=== PATIENT | male | born 1945 | race Caucasian/White ===

== ENCOUNTER 2019-08-18 18:21 | Inpatient (IN) ==
[2019-08-18 18:56] LABS: BASO# 0.01 X1000 (0.0-0.2); BASO% 0.1 % (0.0-0.8); EOS# 0.05 X1000 (0.0-0.7); EOS% 0.5 % (0.0-10.0); HEMATOCRIT 40.9 % (42.0-52.0); HEMOGLOBIN 13.9 g/dL (14.0-18.0); IMM GRAN# 0.03 X1000 (0.0-0.04); IMM GRAN% 0.3 % (0.0-0.5); LYMPH# 0.87 X1000 (1.2-3.4); LYMPH% 8.9 % (20.5-51.1); MCH 30.1 PG (27-31); MCV 88.5 FL (81-99); MONO# 0.48 X1000 (0.11-0.59); MONO% 4.9 % (1.7-9.3); MPV 10.2 FL (7.4-10.4); NEUT# 8.32 X1000 (1.4-6.5); NEUT% 85.3 % (42.2-75.2); PLT 242 X1000 (130-400); RBC 4.62 XMIL (4.7-6.1); RDW 13.8 % (11.5-14.5); WBC 9.76 X1000 (4.8-10.8)
[2019-08-18 19:02] LABS: INR 1.04; PROTIME 13.7 Seconds (11.0-16.0)
[2019-08-18 19:03] LABS: PTT 25.2 Seconds (22.3-41.8)
[2019-08-18 19:15] LABS: AGAP 17; ALB/GLOB RATIO 2.1; ALBUMIN 4.6 g/dL (3.5-5.0); ALKALINE PHOSPHATASE 46 U/L (32-122); BUN 14 mg/dL (8-22); CHLORIDE 99 mmol/L (98-107); CK PROFILE 68 U/L (24-204); COSMO 274; CREATININE 1.1 mg/dL (0.7-1.2); ESTIMATED GFR > 60; GLUCOSE 133 mg/dL (70-104); GOT 20 U/L (10-34); GPT 17 U/L (10-44); POTASSIUM 4.4 mmol/L (3.5-5.1); SODIUM 136 mmol/L (136-145); TCO2 20 mmol/L (25-35); TOTAL BILIRUBIN 0.55 mg/dL (0.20-1.00); TOTAL PROTEIN 6.8 g/dL (6.3-8.3)
[2019-08-18] MEDS ORDERED: NS 1,000 ML IV ONE (19:31)
[2019-08-18] MEDS ORDERED: ZOFRAN IV ONE (19:31)
[2019-08-18 19:49] LABS: URINE SOURCE CLEAN CATCH
[2019-08-18 19:55] LABS: BILIRUBIN URINE NEGATIVE (NEGATIVE); BLOOD URINE NEGATIVE (NEGATIVE); COLOR YELLOW; GLUCOSE URINE NEGATIVE (NEGATIVE); KETONE URINE NEGATIVE (NEGATIVE); LEUKOCYTES URINE NEGATIVE (NEGATIVE); NITRITE URINE NEGATIVE (NEGATIVE); PROTEIN URINE NEGATIVE (NEGATIVE); SP GRAVITY URINE 1.021; TURBIDITY URINE CLEAR (CLEAR); UROBILINOGEN URINE NORMAL (NORMAL)
[2019-08-18 19:56] LABS: UR EPITHELIAL CELLS <10 /HPF (<10); URINE BACTERIA NEGATIVE /HPF; URINE RBC <10 /HPF (<10); URINE WBC <10 /HPF (<10)
--- NOTE | 2019-08-18 20:01 | EKG Report ---
Test Performed on : 08/18/2019 6:26:54 PM Test Reason : r/o sepsis Blood Pressure : / mmHG Vent. Rate : 121 BPM Atrial Rate : 121 BPM P-R Int : 162 ms QRS Dur : 086 ms QT Int : 304 ms P-R-T Axes : 031 065 039 degrees QTc Int : 431 ms Sinus tachycardia. with fusion complexes Inferior infarct , age undetermined Abnormal ECG When compared with ECG of 20-AUG-2010 02:09, fusion complexes are now present Vent. rate has increased BY 54 BPM Inferior infarct is now present Unconfirmed Result
--- NOTE | 2019-08-18 20:05 | Diag Imaging Result Doc PS360 ---
EXAM: CHEST-1 VIEW 08/18/2019 HISTORY: r/o sepsis TECHNIQUE: AP portable upright at 1915 COMMENT: The inspiration is suboptimal. There are no previous studies available for comparison. There is some platelike atelectasis in the lung bases. There are sternotomy wires. IMPRESSION: Atelectasis. Poor inspiration. Electronically signed by Wayne Abad 08/18/2019 8:02 PM
--- NOTE | 2019-08-18 21:40 | Diag Imaging Result Doc PS360 ---
EXAM: CT THORAX/ABD/PELVIS W/CON 08/18/2019 HISTORY: fever, unknown source TECHNIQUE: This exam was performed using automated exposure control, adjustment of mA or kV according to patient size, and/or use of iterative reconstruction technique. COMMENT: There is a 14 mm right paratracheal node. There are no previous thoracic studies available for comparison. There is pleural thickening posteriorly bilaterally and anteriorly on the right. Some of this was present on the previous abdominal study of 10/21/2016. There is also fibrosis in the posterior costophrenic sulcus of the left lower lobe. There is atelectasis or fibrosis anteriorly in the right middle lobe and lingula and both upper lobes. There are spondylotic changes in the thoracic spine. No evidence of acute bony abnormality is present. ABDOMEN: Both renal collecting systems are somewhat distended. There is a 2 mm sized stone on the right. The gallbladder is not distended and there are no apparent stones. The liver and spleen are unremarkable. The adrenal glands are stable in appearance. The pancreas is unremarkable. There is some fluid in the stomach without evidence of distention or mucosal thickening. There is some stool in the colon. There is diverticulosis generally. The appendix is not distended or inflamed in appearance. The small bowel is not distended. There is atherosclerotic calcification in the aorta which is slightly distended distally to 2.5 cm. At the time of the previous examination this measured 2.4 cm. Pelvis: There is stranding in the fat surrounding the distal descending colon. There is marked diverticulosis in the sigmoid colon. No evidence of abscess is present. There are degenerative changes in both hips. There is apparent synovial cyst formation in the right psoas. This was not apparent at the time the previous study. The cyst measures 2.9 cm in diameter. There are severe degenerative disc and facet changes at L5-S1 and to a lesser extent at L4-5. IMPRESSION: 1. No evidence of acute disease in the chest. 2. Diverticulosis coli with mild diverticulitis in the distal descending colon. 3. Minimal abdominal aortic aneurysm. 4. Right nephrolithiasis. Other nonacute findings as described above. Electronically signed by Wayne Abad 08/18/2019 9:37 PM
[2019-08-18] MEDS ORDERED: CIPRO 400 MG/D5W 400 MG/200 ML IVPB IV ONE (21:46)
[2019-08-18] MEDS ORDERED: FLAGYL 500 MG/NS 500 MG/100 ML IVPB IV ONE (21:46)
--- NOTE | 2019-08-18 22:30 | PROVIDER DOCUMENTATION ---
This chart was entered by Beau Solo Scribe, acting as scribe for Kristina Leal MD. HPI-General Adult - General Chief Complaint: Nausea Stated Complaint: NAUSEATED, CONSTIPATION Time Seen by Provider: 08/18/19 19:00 Source: patient, family Allergies/Adverse Reactions: Patient Allergies Allergy/AdvReac Type Severity Reaction Status Date / Time No Known Allergies Allergy Verified 10/21/16 05:45 Home Medications: Home Medication List Medication Instructions Recorded Confirmed Last Taken Type Ezetimibe [Zetia] 10 mg PO DAILY 10/21/16 08/18/19 Unknown History Lisinopril 20 mg PO DAILY 10/21/16 08/18/19 10/20/16 09:00 History Metoprolol Succinate 100 mg PO DAILY 10/21/16 08/18/19 10/20/16 09:00 History Rosuvastatin Calcium [Crestor] 40 mg PO DAILY 10/21/16 08/18/19 10/20/16 09:00 History Aspirin EC 325 mg PO DAILY 08/18/19 08/18/19 Unknown History Fenofibric Acid (Choline) 135 mg PO DAILY 08/18/19 08/18/19 Unknown History [Fenofibric Acid] Niacin 1,000 mg PO QHS 08/18/19 08/18/19 Unknown History - History of Present Illness -Gen Adult Nature of Presenting Problems: 73 y/o M presents to the ED c/o chills, fever and generalized weakness. reports that patient has been watching the game all day and laid down to rest. reports patient called her to the room due to having chills and had a temp of 102 at that time. Patient reports shortly after he started having diaphoresis. reports that patient is very active in his everyday life. Patient c/o some generalized weakness and nausea. Patient has had chronic constipation for the past x6 months. reports that patient had bypass surgery x9 years ago. Patient denies vomiting and all other symptoms including cough. His 12 year old grandosn who lives with them recently had strep throat but no other sick contacts. Quality of Pain: reports: none Severity: reports: mild Onset/Duration: reports: 1-3 hours ago Timing: reports: still present Context/Activities at Onset: reports: none Modifying Factors: improves with: nothing Associated Symptoms: reports: fever/chills, nausea, weakness (general). denies: diarrhea, vomiting Review of Systems - Adult - REVIEW OF SYSTEMS - ADULT Constitutional: reports: chills, fever Eyes: reports: no symptoms reported Ears, Nose, Mouth & Throat: denies: ear pain, throat pain Cardiovascular: denies: chest pain, palpitations Respiratory: denies: shortness of breath, wheezing Gastrointestinal: reports: constipation (chronic), nausea. denies: vomiting Genitourinary: denies: dysuria, frequency Musculoskeletal: reports: no symptoms reported Integumentary: reports: no symptoms reported Neurological: reports: other (general weakness). denies: dizziness/vertigo, headache/migraines Psychiatric: reports: no symptoms reported Endocrine: reports: no symptoms reported Hematologic/Lymphatic: reports: no symptoms reported Allergic/Immunologic: reports: no symptoms reported All Other Systems: Reviewed and Negative Past History - Adult - PAST MEDICAL HISTORY-ADULT Review of Records: reports: Old Records Reviewed, Nursing Assessment Review, Medications Reviewed Major Childhood Illnesses: reports: denies history Cardiovascular: reports: HTN, hyperlipidemia, other (bypass) Respiratory: reports: denies history Gastrointestinal: reports: denies history Obstetrical/Gynecological: reports: denies history Genitourinary: reports: denies history Musculoskeletal: reports: denies history Neurological: reports: denies history Endocrine/Immune: reports: Diabetes Other Conditions: reports: denies history - PRIOR SURGERIES/PROCEDURES Surgical/Procedure History: reports: CABG - IMMUNIZATION STATUS Childhood Immunizations: See Nurse Assessment Flu Vaccine: See Nurse Assessment - SOCIAL HISTORY Smoking: quit greater than 1 year Substance Use: alcohol Physical Exam-General - PHYSICAL EXAM-ADULT Initial Vital Signs Reviewed: Yes - CONSTITUTIONAL General Appearance: alert, no apparent distress, other (eating ice chips, hard of hearing) - EYES Eyes: PERRL/EOMI - HEAD, EARS, NOSE, MOUTH & THROAT HENMT: normocephalic/atraumatic, moist mucous membranes, pharynx normal - NECK Neck: full range of motion, supple, normal inspection - RESPIRATORY Respiratory: lungs clear, normal breath sounds, no respiratory distress, no accessory muscle use - CARDIOVASCULAR Cardiovascular: normal peripheral pulses, tachycardia, systolic murmur - GASTROINTESTINAL (ABDOMEN) Abdominal Exam: normal bowel sounds, non tender, soft - MUSCULOSKELETAL Back Exam: normal inspection Extremity: normal range of motion, non-tender, normal inspection - SKIN Integumentary: normal color, warm/dry - NEUROLOGIC Neurologic: grossly normal - PSYCHIATRIC Psych/Mental Status: normal mood/affect, oriented x 3 Progress - PLAN OF CARE/RESULTS Progress/Plan/Lab Results: Vital Signs - 8 hr 08/18/19 18:24 Temperature 100.3 F H Pulse Rate 120 H Respiratory Rate 18 Blood Pressure 167/96 O2 Sat by Pulse Oximetry 96 Laboratory Results - last 24 hr 08/18/19 08/18/19 08/18/19 18:43 18:43 18:43 WBC 9.76 RBC 4.62 L Hgb 13.9 L Hct 40.9 L MCV 88.5 MCH 30.1 MCHC 34.0 RDW Std Deviation 13.8 Plt Count 242 MPV 10.2 Immature Gran % (Auto) 0.3 Neut % (Auto) 85.3 H Lymph % (Auto) 8.9 L [place] % (Auto) 4.9 Eos % (Auto) 0.5 Baso % (Auto) 0.1 Immature Gran # (Auto) 0.03 Neut # (Auto) 8.32 H Lymph # (Auto) 0.87 L [place] # (Auto) 0.48 Eos # (Auto) 0.05 Baso # (Auto) 0.01 PT 13.7 INR 1.04 PTT (Actin FS) 25.2 Sodium 136 Potassium 4.4 Chloride 99 Carbon Dioxide 20 L Anion Gap 17 BUN 14 Creatinine 1.1 Estimated GFR/1.73 m2 > 60 BUN/Creatinine Ratio 13 Glucose 133 H Calculated Osmolality 274 Calcium 10.0 Total Bilirubin 0.55 AST 20 ALT 17 Alkaline Phosphatase 46 Creatine Kinase 68 Troponin T Total Protein 6.8 Albumin 4.6 Globulin 2.2 Albumin/Globulin Ratio 2.1 Plasma Lactate 08/18/19 08/18/19 18:43 18:43 WBC RBC Hgb Hct MCV MCH MCHC RDW Std Deviation Plt Count MPV Immature Gran % (Auto) Neut % (Auto) Lymph % (Auto) [place] % (Auto) Eos % (Auto) Baso % (Auto) Immature Gran # (Auto) Neut # (Auto) Lymph # (Auto) [place] # (Auto) Eos # (Auto) Baso # (Auto) PT INR PTT (Actin FS) Sodium Potassium Chloride Carbon Dioxide Anion Gap BUN Creatinine Estimated GFR/1.73 m2 BUN/Creatinine Ratio Glucose Calculated Osmolality Calcium Total Bilirubin AST ALT Alkaline Phosphatase Creatine Kinase Troponin T < 0.010 Total Protein Albumin Globulin Albumin/Globulin Ratio Plasma Lactate 1.9 Orders Category Date Time Status Cardiac Monitoring DIRECTED Care 08/18/19 18:29 Active IV Insertion ORDERED Care 08/18/19 18:29 Active Notify MD of + Sepsis Screen NOW Care 08/18/19 18:29 Active Notify Physician As Ordered Care 08/18/19 18:29 Active CHEST-1 VIEW [RAD] Stat Exams 08/18/19 18:29 Ordered BLOOD CULTURE [BLDCUL] Stat Lab 08/18/19 18:43 Ordered CBC WITH DIFF [HEME] Stat Lab 08/18/19 18:43 Completed CK PROFILE [SP CHEM] Stat Lab 08/18/19 18:43 Completed COMPREHENSIVE METABOLIC PANEL [CHEM] Stat Lab 08/18/19 18:43 Completed LACTATE, PLASMA [CHEM] Lab 08/18/19 21:30 Uncollected LACTATE, PLASMA [CHEM] Lab 08/19/19 00:30 Uncollected LACTATE, PLASMA [CHEM] Q3H Lab 08/18/19 18:43 Completed PROTIME WITH INR [COAG] Stat Lab 08/18/19 18:43 Completed PTT [COAG] Stat Lab 08/18/19 18:43 Completed TROPONIN T Stat Lab 08/18/19 18:43 Completed URINALYSIS W/POSS RFLX CULT [URINALYSIS] Stat Lab 08/18/19 18:29 Uncollected EKG [EKG] Stat Ther 08/18/19 18:29 Ordered Patient with normal WBC but temp to 100.[address] upon arrival[address] BP stable. CT chest/abd/pelvis showing mild diverticulitis. WIll give cipro and flagyl. LA normal but borderline at 1.9. Patient states he is feeling better upon reeval. Discussed admission and they agreed. Spoke to Dr Mclain, prescription clerk lenses for hospitalist who accepted patient for admission. Further orders to be placed by their team. Result Diagrams: 08/18/19 18:43 08/18/19 18:43 - EKG 1 Time of EKG reading by physician:: 18:28 EKG Read and Signed by:: Chencho Cedeno (\) EKG Interpretation (*Must complete 3 of following elements*): Abnormal Rate: 121 Rhythm: tachycardia [place]: normal ST Wave: normal - XRAY 1 XRAY Study: Chest Impression: See EMR Report ( EXAM: CHEST-1 VIEW 08/18/2019 HISTORY: r/o sepsis TECHNIQUE: AP portable upright at 1915 COMMENT: The inspiration is suboptimal. There are no previous studies available for comparison. There is some platelike atelectasis in the lung bases. There are sternotomy wires. IMPRESSION: Atelectasis. Poor inspiration. Electronically signed by Wayne Abad 08/18/2019 8:02 PM) - CT/MRI 1 CT Study: Abdomen, Pelvis Impression: See EMR Report (EXAM: CT THORAX/ABD/PELVIS W/CON 08/18/2019 HIS TORY: fever, unknown source TECHNIQUE: This exam was performed using automated exposure control, adjustment of mA or kV according to patient size, and/or use of iterative reconstruction technique. COMMENT: There is a 14 mm right paratracheal node. There are no previous thoracic studies available for comparison. There is pleural thickening posteriorly bilaterally and anteriorly on the right. Some of this was present on the previous abdominal study of 10/21/2016. There is also fibrosis in the posterior costophrenic sulcus of the left lower lobe. There is atelectasis or fibrosis anteriorly in the right middle lobe and lingula and both upper lobes. There are spondylotic changes in the thoracic spine. No evidence of acute bony abnormality is present. ABDOMEN: Both renal collecting systems are somewhat distended. There is a 2 mm sized stone on the right. The gallbladder is not distended and there are no apparent stones. The liver and spleen are unremarkable. The adrenal glands are stable in appearance. The pancreas is unremarkable. There is some fluid in the stomach without evidence of distention or mucosal thickening. There is some stool in the colon. There is diverticulosis generally. The appendix is not distended or inflamed in appearance. The small bowel is not distended. There is atherosclerotic calcification in the aorta which is slightly distended distally to 2.5 cm. At the time of the previous examination this measured 2.4 cm. Pelvis: There is stranding in the fat surrounding the distal descending colon. There is marked diverticulosis in the sigmoid colon. No evidence of abscess is present. There are degenerative changes in both hips. There is apparent synovial cyst formation in the right psoas. This was not apparent at the time the previous study. The cyst measures 2.9 cm in diameter. There are severe degenerative disc and facet changes at L5-S1 and to a lesser extent at L4-5. IMPRESSION: 1. No evidence of acute disease in the chest. 2. Diverticulosis coli with mild diverticulitis in the distal descending colon. 3. Minimal abdominal aortic aneurysm. 4. Right nephrolithiasis. Other nonacute findings as described above. Electronically signed by Wayne Abad 08/18/2019 9:37 PM) - CONSULTS/PCP/HOSPITALIST Notification #1 *Consult/PCP/Hospitalist*: Dr Mclain Time Discussed: 22:00 Consult Disposition: Will see in ED Departure - Departure Date of Disposition Decision: 08/18/19 Time of Disposition Decision: 22:07 DIAGNOSIS: Diverticulitis, Fever, Nausea Disposition: ADMITTED INPATIENT 09 Certified Medical Emergency: Emergent Condition: Stable Referrals and Follow-Ups: Queta Wheat MD [Primary Care Provider] - - Critical Care Note This patient required my direct & personal management of CC.: No Attestation - Physician/ KENROY Attestation Patient care was provided by Advanced Practice Provider:: No The physician spent face to face time with patient:: Yes Advanced Practice Provider documentation review:: Supervising physician onsite and consulted in the evaluation and care of this patient. The physician did have a face to face encounter with the patient. This chart was documented by the indicated scribe, (Beau Solo Scribe) and accurately reflects the services I performed and decisions made by me, Kristina Leal MD, as attested by the provider's signature.
--- NOTE | 2019-08-19 00:08 | HISTORY AND PHYSICAL ---
PRIMARY CARE PHYSICIAN: Dr. Wheat CHIEF COMPLAINT: Abdominal pain. HISTORY OF PRESENTING ILLNESS: A 73-year-old elderly male with a history of hearing loss, diabetes mellitus type 2, hypertension and coronary disease, who had presented to the emergency department with several days history of having abdominal pain. The patient states it was cramping and felt like a bloating sensation and the pain would not subside. The patient was evaluated in the emergency department. He had imaging done which did show diverticulitis. Subsequently, he will require admission for further management. At the time of my examination, patient had denied any headache, fever, chills, chest pain, shortness of breath or any weight changes, but complained of abdominal pain. PAST MEDICAL HISTORY: Include diabetes mellitus type 2, hypertension, hyperlipidemia, coronary artery disease. PAST SURGICAL HISTORY: Coronary bypass, ear surgery, bladder surgery. ALLERGIES: No known drug allergies. CURRENT MEDICATIONS: Aspirin 325 mg p.o. daily, Zetia 10 mg p.o. daily, lisinopril 20 mg p.o. daily, metoprolol 100 mg p.o. daily, rosuvastatin 40 mg p.o. daily. SOCIAL HISTORY: He is a former smoker. No history of alcohol or illicit drug use. FAMILY HISTORY: No history of coronary artery disease. REVIEW OF SYSTEMS: Fourteen point review of system as listed in HPI. Other systems negative. PHYSICAL EXAMINATION: GENERAL: Cooperative, friendly male. He is resting comfortably now. VITAL SIGNS: Temperature 100.3 degrees, pulse 120, respiration 18, blood pressure 167/96. HEENT: Atraumatic, normocephalic. Extraocular movements intact. PERRLA. NECK: No masses. CHEST: Clear to auscultation. CARDIOVASCULAR: Regular rate and rhythm. ABDOMEN: Soft, diffuse tenderness. EXTREMITIES: No edema. NEUROLOGIC: He is awake, alert, oriented x3. GENITOURINARY: No bladder distention. SKIN: Warm. LABORATORIES AND STUDIES: WBCs 9.76, hemoglobin 13.9, hematocrit 40.9, platelets 242,000. Sodium 136, potassium 4.4, chloride 99, CO2 is 20, BUN is 14, creatinine is 1.1, glucose 133. UA is negative. CT of the abdomen and pelvis shows mild diverticulitis. ASSESSMENT: A 73-year-old male with a history of diabetes mellitus type 2, hypertension, hyperlipidemia, coronary disease and hearing loss, who had presented to emergency department with several days history of having abdominal pain. Patient was evaluated in the emergency department. He had imaging done which did show diverticulitis. Subsequently, he will require admission for further management. 1. Acute diverticulitis. 2. Diabetes mellitus type 2. 3. Hypertension. PLAN: 1. We will admit patient to medical floor with telemetry. 2. We will start patient on IV antibiotics. 3. Give patient adequate pain control, IV fluids and antiemetics as needed. 4. Monitor blood glucose and put the patient on sliding scale insulin regimen. 5. Monitor blood pressure. Resume his antihypertensive agent. 6. We will put patient on DVT prophylaxis with SCD. 7. We will continue to follow, and reassess and make further recommendation based on patient's clinical course. cc: Too Mclain MD
[2019-08-19] MEDS ORDERED: NS 1,000 ML IV SCH (00:27)
[2019-08-19] MEDS ORDERED: ZOFRAN IV PRN (00:27)
[2019-08-19] MEDS: ZOSYN 3.375 GM in NS 50 ML IV SCH ×2 (01:00→05:30)
[2019-08-19 06:58] LABS: BASO# 0.01 X1000 (0.0-0.2); BASO% 0.1 % (0.0-0.8); HEMATOCRIT 37.8 % (42.0-52.0); HEMOGLOBIN 12.7 g/dL (14.0-18.0); LYMPH# 0.72 X1000 (1.2-3.4); MCH 29.8 PG (27-31); MCHC 33.6 g/dL (33-37); MCV 88.7 FL (81-99); MONO# 0.44 X1000 (0.11-0.59); MONO% 4.9 % (1.7-9.3); MPV 10.2 FL (7.4-10.4); NEUT# 7.84 X1000 (1.4-6.5); PLT 224 X1000 (130-400); RBC 4.26 XMIL (4.7-6.1); RDW 14.4 % (11.5-14.5); WBC 9.01 X1000 (4.8-10.8)
[2019-08-19 07:15] LABS: AGAP 14; BUN 11 mg/dL (8-22); CALCIUM 9.3 mg/dL (8.8-10.2); CHLORIDE 99 mmol/L (98-107); COSMO 269; CREATININE 1.1 mg/dL (0.7-1.2); ESTIMATED GFR > 60; GLUCOSE 127 mg/dL (70-104); POTASSIUM 3.9 mmol/L (3.5-5.1); SODIUM 134 mmol/L (136-145); TCO2 21 mmol/L (25-35)
[2019-08-19] MEDS ORDERED: TOPROL XL PO SCH (09:00)
[2019-08-19] MEDS ORDERED: ASPIRIN EC PO SCH (09:00)
[2019-08-19] MEDS ORDERED: TRILIPIX PO SCH (09:00)
[2019-08-19] MEDS ORDERED: ZETIA PO SCH (09:00)
[2019-08-19] MEDS ORDERED: PRINIVIL PO SCH (09:00)
[2019-08-19] MEDS ORDERED: CRESTOR PO SCH (09:00)
[2019-08-19 15:31] VITALS: BP 140/52
--- NOTE | 2019-08-19 15:38 | DISCHARGE SUMMARY ---
ADMISSION DATE: 08/18/2019 DISCHARGE DATE: 08/19/2019 DISPOSITION: Home. FOLLOW-UP: Will be with Dr. Mary Alice Birch. CONSULTATION DURING THIS ADMISSION: None. INVASIVE PROCEDURES DONE DURING THIS ADMISSION: None. IMAGING STUDIES OF SIGNIFICANCE: Chest x-ray did show atelectasis and poor inspiration. CT scan of the chest, abdomen and pelvis showed diverticulosis coli with mild diverticulitis in the distal descending colon. Minimal abdominal aortic aneurysm. Right nephrolithiasis. ADMISSION DIAGNOSIS: 1. Acute diverticulitis. 2. Diabetes mellitus. 3. Hypertension. DIAGNOSIS AT THE TIME OF DISCHARGE: 1. Intractable nausea and vomiting on presentation, improved. 2. Acute descending colon diverticulitis. 3. Hypertension. 4. Minimum abdominal aorta aneurysm. 5. Nonobstructive right nephrolithiasis. DISCHARGE MEDICATIONS: 1. Lisinopril 20 mg p.o. daily. 2. Metoprolol 100 mg p.o. daily. 3. Zetia 10 mg daily. 4. Crestor 40 mg p.o. daily. 5. Aspirin 325 p.o. daily. 6. Niacin. 7. Levofloxacin 250 p.o. daily. 8. Metamucil 1 tab daily. 9. Metronidazole 250 p.o. 3 times per day. PRESENTING COMPLAINT: Abdominal pain. HISTORY OF PRESENT COMPLAINT: Mr. Hinton is a 73-year-old male with history of hypertension, dyslipidemia, coronary artery disease, came to the emergency department because of abdominal pain, nausea, vomiting. The patient was evaluated. Imaging studies revealed mild descending colon diverticulitis. Because he was p.o. intolerant, he was admitted for inpatient management. HOSPITAL COURSE: Mr. Hinton was kept NPO overnight, was adequately hydrated, was started on IV broad-spectrum antibiotics. Overnight, he improved remarkably. Abdominal pain subsided and he is able to tolerate p.o. He has currently been able to eat his lunch. Physical exam is completely unremarkable. We think he will be okay on oral antibiotics and let him follow up with his primary care doctor. Mr. Hinton is also advised to follow up with GI for possible comprehensive GI evaluation once the acute inflammation has subsided. OBJECTIVE: This morning his vitals, blood pressure is 150/76, pulse of 98, respiration is 18, temperature 98.1 degrees. Patient is doing remarkably well. We think he is stable for discharge. All the discharge instructions have been discussed with Mr. Hinton. Specifically, we stressed the need to prevent any constipation. He has been started on Metamucil to help prevent any constipation. He has also been advised to adequately hydrate himself. was at the bedside at the time of the discharge instructions. TIME SPENT FOR DISCHARGE: 38 minutes. cc: MD Dr. Roshan Dillon
== END 2019-08-19 16:38 | disposition home or self-care (01) | DRG 392 ==
LOC: ED 18:21 → 4N 23:35 → SUATTDRO 23:35
PROVIDERS: ATTEND Internal Medicine

== ENCOUNTER 2019-08-24 08:54 | Inpatient (IN) ==
--- NOTE | 2019-08-24 09:30 | PROVIDER DOCUMENTATION ---
HPI-Abdominal Pain/GI Problem - General Chief Complaint: GI Bleed Stated Complaint: WEAKNESS,VOMITING,DARK STOOLS Time Seen by Provider: 08/24/19 09:05 Source: patient, family () Allergies/Adverse Reactions: Patient Allergies Allergy/AdvReac Type Severity Reaction Status Date / Time No Known Allergies Allergy Verified 10/21/16 05:45 Home Medications: Home Medication List Medication Instructions Recorded Confirmed Last Taken Type Ezetimibe [Zetia] 10 mg PO DAILY 10/21/16 08/24/19 Unknown History Lisinopril 20 mg PO DAILY 10/21/16 08/24/19 10/20/16 09:00 History Metoprolol Succinate 100 mg PO DAILY 10/21/16 08/24/19 10/20/16 09:00 History Rosuvastatin Calcium [Crestor] 40 mg PO DAILY 10/21/16 08/24/19 10/20/16 09:00 History Aspirin EC 325 mg PO DAILY 08/18/19 08/24/19 Unknown History Fenofibric Acid (Choline) 135 mg PO DAILY 08/18/19 08/24/19 Unknown History [Fenofibric Acid] Niacin 1,000 mg PO QHS 08/18/19 08/24/19 Unknown History Levofloxacin 250 mg PO DAILY #10 tab 08/19/19 08/24/19 Unknown Rx Metronidazole [Flagyl] 250 mg PO TID #30 tab 08/19/19 08/24/19 Unknown Rx Psyllium Husk [Metamucil] 0.4 gm PO DAILY #120 cap 08/19/19 08/24/19 Unknown Rx - History of Present Illness-ABD Nature of Presenting Problems: Patient is a 73yo M, accompanied by , who presents with complaints of generalized abdominal pain, nausea, vomiting, and dark stools that began 2 days ago. Patient's reports patient had an episode of emesis 2 days ago that "looked like coffee grounds." Patient reports dark, tarry stools. Reports he was admitted inpatient last week (08/18-08/19) for Diverticulitis and was discharged this past weekend. Patient denies dark stools/emesis while admitted. Patient's reports he was discharged home on Levaquin and Flagyl which he is still taking. Patient states he takes a 325mg ASA daily d/t hx of CO/CABG. Patient reports since being discharged, he has had decreased appetite, weakness, and SOB. Denies fever/chills, CP, cough, dizziness, or syncope. Upon examination, patient is breathing heavily, and when asked, reports some SOB. Patient's reports he will occasionally breathe like this, but it is concerning to her. Patient's O2 saturation on RA is 100% and no evidence of retractions/accessory muscle usage/stridor noted. Abdominal Pain Onset Location: reports: generalized abdomen Pain Radiation: reports: no radiation Quality of Pain: reports: pressure Severity in ED: reports: moderate Onset/Duration: reports: 2 days ago Timing: reports: still present Activities at Onset: reports: none Modifying Factors: improves with: nothing Associated Symptoms: reports: loss of appetite, nausea, shortness of breath, vomiting, weakness. denies: chest pain, cough, dizziness, fever/chills, syncope Last BM: last night Dark Stools Present?: reports: black, tarry Rectal Bleeding: reports: none Rectal Pain: reports: none # of Vomiting Episodes: 1 Emesis Description: reports: coffee grounds Bruising or Bleeding Gums?: No Similar Symptoms Previously?: No Recently seen or treated by another doctor?: Yes (Admitted 08/18-08/19) Review of Systems - Adult - REVIEW OF SYSTEMS - ADULT Constitutional: denies: chills, fever Eyes: reports: no symptoms reported Ears, Nose, Mouth & Throat: reports: no symptoms reported Cardiovascular: reports: no symptoms reported. denies: chest pain, palpitations, syncope Respiratory: reports: see HPI, shortness of breath. denies: cough, wheezing Gastrointestinal: reports: see HPI, abdominal pain (generalized), hematemesis, nausea, poor appetite, vomiting, other (dark, loose stools) Genitourinary: reports: no symptoms reported Musculoskeletal: reports: no symptoms reported. denies: back pain Integumentary: reports: no symptoms reported Neurological: reports: no symptoms reported. denies: dizziness/vertigo, syncope Psychiatric: reports: no symptoms reported Endocrine: reports: no symptoms reported Past History - Adult - PAST MEDICAL HISTORY-ADULT Review of Records: reports: Old Records Reviewed, Nursing Assessment Review, Medications Reviewed Gastrointestinal: reports: diverticulosis (diverticulitis) - IMMUNIZATION STATUS Childhood Immunizations: See Nurse Assessment Flu Vaccine: See Nurse Assessment - FAMILY HISTORY Family History: reviewed, not pertinent - SOCIAL HISTORY Smoking: quit greater than 1 year Physical Exam-General - PHYSICAL EXAM-ADULT Initial Vital Signs Reviewed: Yes - CONSTITUTIONAL General Appearance: alert, mild distress. negative: lethargic, slow to respond, obtunded - EYES Eyes: PERRL/EOMI, pink conjunctivae. negative: EOM palsy, scleral icterus - HEAD, EARS, NOSE, MOUTH & THROAT HENMT: normocephalic/atraumatic, moist mucous membranes. negative: angioedema - NECK Neck: full range of motion, supple, normal inspection - RESPIRATORY Respiratory: chest non-tender, lungs clear, normal breath sounds, no pleuratic chest pain, no accessory muscle use, increased rate (heavy breathing). negative: crackles, rales, rhonchi, stridor, wheezing, pain on inspiration, retractions, splinting - CARDIOVASCULAR Cardiovascular: regular rate, rhythm, no gallop - GASTROINTESTINAL (ABDOMEN) Abdominal Exam: soft, no organomegaly, abnormal bowel sounds (hypoactive all quadrants), tenderness (generalized). negative: distended, guarding, rigid, rebound - GENITOURINARY Male Genitalia: deferred Rectal Exam: normal rectal tone, black stool Hemoccult Exam: heme positive stool - MUSCULOSKELETAL Back Exam: normal inspection, no CVA tenderness Extremity: normal range of motion, non-tender - SKIN Integumentary: normal color, warm/dry. negative: cyanosis, diaphoresis, jaund ice, pallor - NEUROLOGIC Neurologic: grossly normal. negative: aphasia, EOM palsy - PSYCHIATRIC Psych/Mental Status: normal mood/affect, normal thought content, normal thought process, oriented x 3 Progress - PLAN OF CARE/RESULTS Progress/Plan/Lab Results: Vital Signs - 8 hr 08/24/19 09:01 Temperature 98.1 F Pulse Rate 85 Respiratory Rate 18 Blood Pressure 120/91 O2 Sat by Pulse Oximetry 100 Orders Category Date Time Status Nursing- Obtain EKG ONCE Care 08/24/19 09:26 Active Saline Loc NOW Care 08/24/19 09:05 Active CHEST-2 VIEWS [RAD] Stat Exams 08/24/19 09:26 Ordered CBC WITH ELECTRONIC DIFF [HEME] Stat Lab 08/24/19 09:05 Uncollected CK PROFILE [SP CHEM] Stat Lab 08/24/19 09:26 Ordered COMPREHENSIVE METABOLIC PANEL [CHEM] Stat Lab 08/24/19 09:05 Uncollected OCCULT BLOOD SCREENING [STOOL] Stat Lab 08/24/19 09:05 Uncollected PROTIME WITH INR [COAG] Stat Lab 08/24/19 09:05 Uncollected PTT [COAG] Stat Lab 08/24/19 09:05 Uncollected TROPONIN T Stat Lab 08/24/19 09:26 Uncollected TYPE & SCREEN [BBK] Stat Lab 08/24/19 09:06 Uncollected URINALYSIS W/POSS RFLX CULT [URINALYSIS] Stat Lab 08/24/19 09:05 Uncollected EKG [EKG] Stat Ther 08/24/19 09:26 Ordered Patient screens in positive for SIRS criteria d/t WBC count & Tachypnea. Discussed with Dr. Cedeno who agrees there is no appreciable source of infection. Tachypnea likely d/t confirmed GI bleed and anemia. Patient currently taking Flagyl & Levaquin at home for Diverticulitis. Will hold on antibiotics per Sepsis protocol for now. Lab results, imaging results, and plan of care discussed with patient and who agree with and verbalize understanding. Result Diagrams: 08/24/19 09:44 08/24/19 09:44 - EKG 1 Time of EKG reading by physician:: 09:47 EKG Read and Signed by:: Chencho Cedeno EKG Interpretation (*Must complete 3 of following elements*): Abnormal Rate: 71 Rhythm: NSR [place]: normal QRS: normal MD Interval: normal ST Wave: non-specific ST changes (consider anterior ischemia) Comments: Inferior infarct, age undetermined - XRAY 1 XRAY: Bilateral XRAY Study: Chest Impression: See EMR Report ([facility] - [address] , [address], [place] [address] [facility] - [address] [place] [address] Department of Imaging Patient: KAVON WHITLOCK EADM Date: 08/24/19MR#: [id number] : 3ADM Status: REG ERAcct#: [id number] Age/Sex: 73/MRoom/Bed: Loc: ED Ordering Physician: Jayshree Burks Family Physician: Queta Wheat MD Reason for Procedure: SOB Signed EXAM: CHEST-2 VIEWS HISTORY: SOB No pneumonia or congestive failure. TECHNIQUE: Chest two views COMPARISON: 08/18/2019 FINDINGS: The lungs are well expanded. The heart is not enlarged. There are sternal wires and surgical clips. The vessels are not distended. There are no infiltrates. No pleural effusions. IMPRESSION: No acute abnormality. Electronically signed by Fredi Rice 08/24/2019 10:04 AM 08/24/19 1004 Interpreting Physician: Fredi Rice MD Dictated Date/Time: 08/24/19 1004 cc: Jayshree Jurado; Queta Wheat MD) - CONSULTS/PCP/HOSPITALIST Notification #1 *Consult/PCP/Hospitalist*: QUINN Judge Time Discussed: 11:22 Reason/Comments: GI bleed Consult Disposition: Admit (To Hospitalist; will consult) #2 Consult: ALICE Soria ([facility]) Time Discussed: Reason/Comments: GI bleed; anemia Consult Disposition: Admit Departure - Departure Date of Disposition Decision: 08/24/19 Time of Disposition Decision: 11:30 DIAGNOSIS: Elevated lactic acid level, Nausea GI bleed Qualifiers: GI bleed type/associated pathology: unspecified gastrointestinal hemorrhage type Qualified Code(s): K92.2 - Gastrointestinal hemorrhage, unspecified Abdominal pain Qualifiers: Abdominal location: generalized Qualified Code(s): R10.84 - Generalized abdomi nal pain Anemia Qualifiers: Anemia type: unspecified type Qualified Code(s): D64.9 - Anemia, unspecified Leukocytosis, unspecified Qualifiers: Leukocytosis type: unspecified Qualified Code(s): D72.829 - Elevated white blood cell count, unspecified Disposition: ADMITTED INPATIENT 09 Certified Medical Emergency: Emergent Condition: Fair - Critical Care Note This patient required my direct & personal management of CC.: No Attestation - Physician/ KENROY Attestation Patient care was provided by Advanced Practice Provider:: Yes Advanced Practice Provider:: Jayshree Jurado Advanced Practice Provider documentation review:: The Mid-level provider documentation, treatment plan and medical decision making was reviewed by the physician who agrees with all treatment and medical decision making by the MLP. The physician spent face to face time with patient:: No Advanced Practice Provider documentation review:: Supervising physician onsite and consulted in the evaluation and care of this patient. The physician did not have a face to face encounter with the patient.
[2019-08-24] MEDS ORDERED: ZOFRAN IV ONE (09:56)
--- NOTE | 2019-08-24 10:06 | Diag Imaging Result Doc PS360 ---
EXAM: CHEST-2 VIEWS HISTORY: SOB No pneumonia or congestive failure. TECHNIQUE: Chest two views COMPARISON: 08/18/2019 FINDINGS: The lungs are well expanded. The heart is not enlarged. There are sternal wires and surgical clips. The vessels are not distended. There are no infiltrates. No pleural effusions. IMPRESSION: No acute abnormality. Electronically signed by Fredi Rice 08/24/2019 10:04 AM
[2019-08-24 10:10] LABS: BASO# 0.02 X1000 (0.0-0.2); BASO% 0.2 % (0.0-0.8); EOS# 0.01 X1000 (0.0-0.7); EOS% 0.1 % (0.0-10.0); HEMOGLOBIN 11.6 g/dL (14.0-18.0); IMM GRAN# 0.07 X1000 (0.0-0.04); IMM GRAN% 0.6 % (0.0-0.5); LYMPH# 2.05 X1000 (1.2-3.4); LYMPH% 16.3 % (20.5-51.1); MCH 29.5 PG (27-31); MCHC 34.1 g/dL (33-37); MCV 86.5 FL (81-99); MONO# 1.06 X1000 (0.11-0.59); MONO% 8.4 % (1.7-9.3); MPV 10.5 FL (7.4-10.4); NEUT# 9.34 X1000 (1.4-6.5); NEUT% 74.4 % (42.2-75.2); PLT 364 X1000 (130-400); RBC 3.93 XMIL (4.7-6.1); RDW 13.7 % (11.5-14.5); WBC 12.55 X1000 (4.8-10.8)
[2019-08-24 10:22] LABS: INR 1.06; PROTIME 13.9 Seconds (11.0-16.0); PTT 25.2 Seconds (22.3-41.8)
--- NOTE | 2019-08-24 10:26 | EKG Report ---
Test Performed on : 08/24/2019 09:47:36 AM Test Reason : Epigastric pain; hx CABG Blood Pressure : / mmHG Vent. Rate : 071 BPM Atrial Rate : 071 BPM P-R Int : 130 ms QRS Dur : 096 ms QT Int : 422 ms P-R-T Axes : 002 048 084 degrees QTc Int : 458 ms Normal sinus rhythm. Inferior infarct (cited on or before 18-AUG-2019) ST & T wave abnormality, consider anterior ischemia Abnormal ECG When compared with ECG of 18-AUG-2019 18:26, (Unconfirmed) fusion complexes are no longer present Vent. rate has decreased BY 50 BPM T wave inversion now evident in Anterior leads Unconfirmed Result
[2019-08-24] MEDS ORDERED: PROTONIX IV ONE (10:32)
[2019-08-24] MEDS ORDERED: SODIUM CHLORIDE 0.9% INJ ONE (10:32)
[2019-08-24 10:38] LABS: AGAP 18; ALB/GLOB RATIO 1.4; ALBUMIN 4.2 g/dL (3.5-5.0); ALKALINE PHOSPHATASE 42 U/L (32-122); BUN 29 mg/dL (8-22); CALCIUM 9.9 mg/dL (8.8-10.2); CHLORIDE 93 mmol/L (98-107); COSMO 275; ESTIMATED GFR > 60; GLUCOSE 143 mg/dL (70-104); GOT 30 U/L (10-34); GPT 30 U/L (10-44); POTASSIUM 4.4 mmol/L (3.5-5.1); SODIUM 133 mmol/L (136-145); TCO2 22 mmol/L (25-35); TOTAL BILIRUBIN 0.47 mg/dL (0.20-1.00); TOTAL PROTEIN 7.2 g/dL (6.3-8.3)
[2019-08-24 11:12] LABS: URINE SOURCE CLEAN CATCH
[2019-08-24 11:16] LABS: BILIRUBIN URINE NEGATIVE (NEGATIVE); BLOOD URINE NEGATIVE (NEGATIVE); COLOR YELLOW; GLUCOSE URINE NEGATIVE (NEGATIVE); KETONE URINE TRACE mg/dL (NEGATIVE); LEUKOCYTES URINE NEGATIVE (NEGATIVE); NITRITE URINE NEGATIVE (NEGATIVE); PROTEIN URINE TRACE mg/dL (NEGATIVE); SP GRAVITY URINE 1.031; TURBIDITY URINE CLEAR (CLEAR); UROBILINOGEN URINE NORMAL (NORMAL)
[2019-08-24 11:18] LABS: UR EPITHELIAL CELLS <10 /HPF (<10); URINE BACTERIA NEGATIVE /HPF; URINE RBC <10 /HPF (<10); URINE WBC <10 /HPF (<10)
[2019-08-24] MEDS ORDERED: NS 1,000 ML IV ONE (11:26)
--- NOTE | 2019-08-24 12:55 | HISTORY AND PHYSICAL ---
PRIMARY CARE PHYSICIAN: Dr. Queta Wheat. CHIEF COMPLAINT: Dark tarry stools, emesis 2 days ago that "look like coffee-grounds", generalized abdominal pain, nausea and vomiting over the last couple of days that has progressively worsened. HISTORY OF PRESENTING ILLNESS: This is a 73-year-old male who presents to [facility] with complaints of generalized abdominal pain, nausea, and vomiting of what the describes as "looking like coffee-grounds" dark tarry stools that began 2 days ago and have progressively worsened. He was noted to be inpatient here on 08/18 through 08/19 with diverticulitis, and was discharged the past week home in stable condition. He had been on Levaquin and Flagyl. Also, he was taking 325 mg aspirin a day. His workup showed a white blood cell count of 12.55, an hemoglobin and hematocrit of 11.6 and 34. His stool for occult blood was positive. ER attending spoke with GI, Dr. Judge, who requested that we admit, and he will consult and most likely scope the patient so he will be admitted for further evaluation and treatment. PAST MEDICAL HISTORY: Diabetes type 2, hypertension, hyperlipidemia, coronary artery disease, and abdominal aortic aneurysm. He was treated for diverticulitis on 08/18 through 08/19/2019. PAST SURGICAL HISTORY: CABG, ear surgery, and bladder surgery. FAMILY HISTORY: Reviewed and noncontributory. SOCIAL HISTORY: Currently, he lives with family. He is a former smoker. Denies any alcohol or illicit drug use. ALLERGIES: He has no known drug allergies. HOME MEDICATIONS: We will hold aspirin 325 mg p.o. daily, Levaquin 250 mg p.o. daily and Flagyl 250 mg p.o. t.i.d. We will continue his Zetia 10 mg p.o. daily, Benefiber acid 135 mg p.o. daily, lisinopril 20 mg p.o. daily, metoprolol 100 mg p.o. daily, niacin 1000 mg p.o. at bedtime, Metamucil 0.4 g p.o. daily, and Crestor 40 mg p.o. daily. LABORATORY DATA: White blood cell count of 12.55, hemoglobin 11.6, hematocrit 34, and platelets 364,000. PT and INR of 13.9 and 1.06. Sodium of 133, potassium 4.4, chloride 93, CO2 22, BUN of 29, creatinine 1, and glucose 143. Plasma lactate was 2.6. Urinalysis was negative. Stool for occult blood was positive. Chest x-ray showed no acute abnormality. EKG showed normal sinus rhythm at 71. REVIEW OF SYSTEMS: He denied any fever, chills, blurred vision, dizziness, chest pain, coughing, or shortness of breath. He was positive for generalized abdominal pain, nausea, and vomiting. The vomiting looked like coffee-grounds and dark tarry stools. Denied any burning or hurting with urination. PHYSICAL EXAMINATION: VITAL SIGNS: On arrival, he had a temperature of 98.1 degrees, pulse 85, respirations 18, blood pressure 120/91 and saturating 100% on room air. GENERAL: This is a 73-year-old male who is lying in the bed and answers questions appropriately. HEENT: Normocephalic, atraumatic. Normal ENT inspection. Oropharynx and nares are clear. EYES: Pupils are equal, round, and reactive to light and accommodation. Extraocular movements are intact. NECK: Normal inspection. Normal range of motion. LUNGS: Clear to auscultation bilaterally with equal lung expansion and chest wall movement. HEART: Regular rate and rhythm. No murmurs, rubs, or gallops. ABDOMEN: Soft. There is some generalized tenderness to palpation. Bowel sounds are hypoactive x4 quadrants. MUSCULOSKELETAL: He has 5/5 strength x4 extremities. NEUROLOGICAL: The cranial nerves 2-12 appear grossly intact. ASSESSMENT: 1. Gastrointestinal bleed. 2. Leukocytosis. 3. Abdominal pain secondary to #1. 4. Diabetes type 2. 5. Hypertension. PLAN: He will be admitted to the medical unit, and placed on telemetry. N.p.o. We will consult GI. Place on Protonix 40 mg IV q.12, Zofran 4 mg IV q.4 hours p.r.n. Continue home medications as previously identified. Give normal saline at 125 mL an hour. Recheck a CBC and BMP in the morning. Further orders after seen by attending and by consultants. Dictated by ALICE Abel for Josh May MD cc: ALICE Abel MD Marlin D. Gill, MD
--- NOTE | 2019-08-24 14:05 | CONSULTATION ---
DATE OF CONSULTATION: 08/24/2019 REASON FOR CONSULTATION: Abdominal pain and GI Bleed HISTORY OF PRESENT ILLNESS: Mr. Hinton is a 73-year-old elderly male who is hard of hearing, came to the emergency department with complaints of generalized abdominal pain, nausea, vomiting, he described his vomit as "coffee ground" and stools as "dark and tarry" which started on Tuesday. His abdominal pain is constant, with hiccups and burping. He was not able to tolerate any solid foods, had only two bowls of vegetable soup just the liquid part. He denied any headache, fever, chills, shortness of breath, chest pain, or weight loss. Recently over the weekend he was in the ER with the same complaints of abdominal pain, nausea, and vomiting. CT scan was done showed diverticulitis. He was given antibiotics, admitted to the 4th floor and was discharged on Tuesday. He is currently waiting in the ER. His hemoglobin and hematocrit on admission was 11.6 and 34. He is NPO, has received one time dose of Protonix and Zofran. PAST MEDICAL HISTORY: Diabetes type II non insulin dependent, hypertension, hyperlipidemia, coronary artery disease, and history of bladder cancer. PAST SURGICAL HISTORY: Coronary bypass, ear surgery, and bladder cancer surgery. ALLERGIES: No known drug allergies. MEDICATIONS: Lisinopril, metoprolol, ezetimibe, metformin, Crestor, aspirin, fenofibric acid, niacin, levofloxacin, Flagyl, and Metamucil. SOCIAL HISTORY: He is . Lives with his spouse. Retired. He has 2 kids, 1 boy and 1 girl. He denies having any alcohol or illicit drugs, but was a former smoker. FAMILY HISTORY: His mom had ulcers, and his 1 son has type 2 diabetes. His daughter has diverticulitis and thyroid cancer. REVIEW OF SYSTEMS: As per HPI. Otherwise, a 12 point review of system is negative. PHYSICAL EXAMINATION: Vital Signs: Temperature 98 degrees, pulse 97, respirations 19, blood pressure 155/91, oxygen saturation 98 percent on room air. His weight is 197 pounds. BMI 27.1 kg/m2. General: Alert and oriented x3 in no acute distress. HEENT: He has pale conjunctivae. No icterus. PERRL. Neck: Supple. Cardiac: Regular rate and rhythm. No rubs, murmurs, or gallops heard on auscultation. Lungs: clear to auscultation in all lorenzo anterior and posterior. Abdomen: Soft. Tender. Distended. Active bowel sounds in all 4 quadrants. Extremities: No cyanosis, clubbing, or edema noted. Pulses 2+ present bilaterally. Neurological: Alert and oriented x3. Nonfocal. Cranial nerves II to XII grossly intact. LABORATORY: WBC is 12.5, RBCs 3.93, hemoglobin 11.6, hematocrit 34, and platelet count is 364,000. Sodium is 133, potassium is 4.4, chloride is 93, carbon dioxide is 22, anion gap is 18, BUN is 29, creatinine is 1.0, glucose is 143, calcium is 9.9, total bilirubin is 0.47, AST 30, ALT is 30, alkaline phosphate is 42, plasma lactate is 2.6. Urine shows trace of protein and trace of ketones. Occult blood was positive, and blood cultures are pending IMAGING: Chest X-ray - no acute abnormality. ASSESSMENT AND PLAN: 1. Abdominal pain 2. GI bleed 3. Nausea/vomiting 4. Acute diverticulitis 5. Diabetes 6. Hypertension 7. Hyperlipidemia 8. ME PLAN: Mr. Hinton 73 year old male in waiting in the ER, currently NPO, no acute distress, we will advance his diet to clear liquid. His hemoglobin and hematocrit is 11.6 and 34, we will continue to monitor his CBC and BMP. The Plan is to do an EGD on Tuesday. We will hold his aspirin and any other blood thinner for now. We will follow the plan of care as per the primary care team and continue with his home medications. Further plan of care will be based on the EGD findings. Risk and benefits of the EGD has been discussed with the patient and his . This plan was discussed with Dr. Judge, patient and his , patient acknowledges understanding of the plan of care. Thank you for the consultation. Please call us for any further questions or concerns. Dictated by ALICE Calvert for Jose Manuel Judge MD ATTESTATION: I saw and examined the patient. I have reviewed labs, imaging, and documentation and agree with the findings and the plan of care as documented by ALICE Calvert. In brief, Mr. Jayant Hinton is a 73 year old man recently hospitalized with acute diverticulitis who represented with a couple of episodes of coffee ground emesis and melena found to have hgb of 11.6 from 13.9 six days ago. He also had mild leukocytosis. His abdomen is benign and VSS. Recommend clear liquid diet and PPI IV BID. He will need diagnostic EGD likely on Tuesday if not sooner pending his clinical course. Recommend antiemetics prn, IVFs, trending CBC daily, and transfuse prn for goal hgb 7-8. Please call with questions or concerns. MTDD
[2019-08-24] MEDS ORDERED: GOLYTELY PO ONE (14:47)
[2019-08-24] MEDS ORDERED: ZOFRAN IV PRN (14:47)
[2019-08-24] MEDS ORDERED: SODIUM CHLORIDE 0.9% INJ SCH (14:47)
[2019-08-24] MEDS: PROTONIX IV SCH (17:30)
[2019-08-24] MEDS: NS 1,000 ML IV SCH (17:30)
--- NOTE | 2019-08-24 18:28 | HISTORY AND PHYSICAL ---
ADDENDUM: I have seen and examined Mr. Hinton today, and kids were at the bedside at the time of the encounter. Mr. Hinton was recently discharged from the hospital on 08/19/2019 for mild descending diverticulitis. He was discharged on levofloxacin, Metamucil and metronidazole. According to him he seems to have been doing fairly okay until about 2 days later he started having dark melena stool and since today he had coffee-grounds emesis. He was brought into the emergency room. Vitals are stable but his labs show that his hemoglobin has gone down to 11.6. Discharge hemoglobin was 12.7. Mr. Hinton is been admitted for GI evaluation. His physical exam for most part is unremarkable at this point. I have also reviewed all his labs and imaging studies. For now will continue with adequate hydration, clear liquid diet, PPI and await for GI evaluation. Please refer to the details of the history and physical which has been dictated by the KITCHEN SUPERVISOR in the chart. cc: Josh May MD
[2019-08-24] MEDS: NIACIN PO SCH (20:09)
[2019-08-25] MEDS: NS 1,000 ML IV SCH ×4 (01:55→19:45)
[2019-08-25] MEDS: PROTONIX IV SCH ×2 (05:40→19:02)
[2019-08-25 07:39] LABS: BASO# 0.02 X1000 (0.0-0.2); BASO% 0.2 % (0.0-0.8); EOS# 0.09 X1000 (0.0-0.7); EOS% 0.9 % (0.0-10.0); HEMATOCRIT 26.3 % (42.0-52.0); HEMOGLOBIN 8.6 g/dL (14.0-18.0); IMM GRAN# 0.12 X1000 (0.0-0.04); IMM GRAN% 1.2 % (0.0-0.5); LYMPH# 2.71 X1000 (1.2-3.4); LYMPH% 26.2 % (20.5-51.1); MCH 29.3 PG (27-31); MCHC 32.7 g/dL (33-37); MCV 89.5 FL (81-99); MONO# 1.05 X1000 (0.11-0.59); MONO% 10.2 % (1.7-9.3); NEUT# 6.35 X1000 (1.4-6.5); NEUT% 61.3 % (42.2-75.2); PLT 332 X1000 (130-400); RBC 2.94 XMIL (4.7-6.1); WBC 10.34 X1000 (4.8-10.8)
[2019-08-25 07:40] LABS: AGAP 9; BUN 20 mg/dL (8-22); CALCIUM 7.7 mg/dL (8.8-10.2); CHLORIDE 105 mmol/L (98-107); COSMO 273; CREATININE 0.8 mg/dL (0.7-1.2); ESTIMATED GFR > 60; GLUCOSE 104 mg/dL (70-104); POTASSIUM 3.7 mmol/L (3.5-5.1); SODIUM 135 mmol/L (136-145); TCO2 21 mmol/L (25-35)
[2019-08-25] MEDS: CRESTOR PO SCH (09:26)
[2019-08-25] MEDS: METAMUCIL POWDER PACKET PO SCH (09:26)
[2019-08-25] MEDS: PRINIVIL PO SCH (09:26)
[2019-08-25] MEDS: TOPROL XL PO SCH (09:26)
[2019-08-25] MEDS: ZETIA PO SCH (09:26)
[2019-08-25] MEDS: TRILIPIX PO SCH (09:33)
[2019-08-25] MEDS ORDERED: TYLENOL PO PRN (13:37)
--- NOTE | 2019-08-25 14:02 | PROGRESS NOTE ---
DATE: 08/25/2019 SUBJECTIVE: This morning Mr. Hinton refers to be doing a lot better. Has not had any more vomiting or coffee-grounds emesis and no bloody stool. OBJECTIVE: Vital signs: Blood pressure is 124/65, pulse of 65, respirations 18, temperature 98.0 degrees. General: Mr. Hinton is a 73-year-old male. He is in bed, no distress. HEENT: Mucosa is pink and moist. Anicteric. Acyanotic. Neck: Supple. Chest: Clear to auscultation. No crepitations. No rhonchi. Cardiovascular: Regular rate and rhythm. There was no murmurs, no rubs, no gallops. GI: Abdomen was soft, nontender. Bowel sounds present. Extremities: No pedal edema. USER INTERFACE ARTIST: Patient is awake, alert, and oriented. LABORATORY DATA: WBC is 10.34, hemoglobin is 8.6, platelet count of 332,000. Chemistry is also reviewed, fairly unremarkable. Occult blood in the stool was positive. ASSESSMENT: 1. GI bleed, manifested by coffee-grounds emesis and melenic stools. The patient's H and H has also dropped down to 8.6 today. He is currently not showing any signs of overt bleeding, so we are going to be keeping an eye and followed the H and H. He is currently he is also on PPI and GI has been notified. 2. Recently treated diverticulitis. The patient is currently asymptomatic. 3. Diabetes mellitus controlled. 4. Hypertension controlled. cc: Josh May MD
[2019-08-25] MEDS: NIACIN PO SCH ×2 (19:45→22:16)
[2019-08-26] MEDS: NS 1,000 ML IV SCH ×2 (02:17→09:57)
[2019-08-26] MEDS: PROTONIX IV SCH ×2 (04:59→17:44)
[2019-08-26 06:35] LABS: HEMATOCRIT 25.4 % (42.0-52.0); HEMOGLOBIN 8.3 g/dL (14.0-18.0); MCH 29.6 PG (27-31); MCHC 32.7 g/dL (33-37); MCV 90.7 FL (81-99); MPV 9.8 FL (7.4-10.4); RBC 2.8 XMIL (4.7-6.1); RDW 14.3 % (11.5-14.5); WBC 9.51 X1000 (4.8-10.8)
[2019-08-26] MEDS: TRILIPIX PO SCH (09:57)
[2019-08-26] MEDS: TOPROL XL PO SCH (09:57)
[2019-08-26] MEDS: METAMUCIL POWDER PACKET PO SCH (09:57)
[2019-08-26] MEDS: CRESTOR PO SCH (09:57)
[2019-08-26] MEDS: PRINIVIL PO SCH (09:57)
[2019-08-26] MEDS: ZETIA PO SCH (09:57)
--- NOTE | 2019-08-26 12:12 | PROGRESS NOTE ---
DATE: 08/26/2019 SUBJECTIVE: This morning, Mr. Hinton refers to be doing well. Has not had any more vomiting. No melena. No coffee-ground emesis either. OBJECTIVE: Vital signs: Blood pressure is 110/64, pulse of 66, respiration is 18, temperature 98 degrees. The patient is saturating 100% on room air. General: Mr. Hinton is a 73-year-old gentleman. He was sitting up in a chair. was at the bedside. He was not in any distress. HEENT: Mucosa is pink and moist. Anicteric. Acyanotic. Neck: Supple. No JVD. Chest: Clear to auscultation. No crepitations. No rhonchi. Cardiovascular: Regular rate and rhythm. There was no murmurs, no rubs, no gallops. GI: Abdomen is soft, nontender. Bowel sounds present. Extremities: No pedal edema. 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 There is no focal neurological deficit. LABORATORY DATA: Hemoglobin is 8.3, fairly almost the same as yesterday. ASSESSMENT: 1. Coffee-grounds emesis with melenic stools consistent with GI bleed. H H has fairly been stabilized from yesterday. The patient is pending an endoscopic evaluation. 2. Recently treated diverticulitis, currently asymptomatic. 3. Diabetes mellitus, controlled. 4. Hypertension, controlled. 5. Dyslipidemia. We will continue with Zetia and fenofibrate. The patient refers to have had some hot flashes with niacin, so she wants us to discontinue that. 6. Mild lactic acidosis from dehydration, resolved. We will discontinue the fluids. PLAN: In general, I think Mr. Hinton is fairly stable. No more coffee-grounds or melena stool. We are going to continue with the PPI, and he is pending endoscopic evaluation tomorrow by GI. cc: Josh May MD
[2019-08-26] MEDS ORDERED: GOLYTELY PO ONE (13:00)
[2019-08-27] MEDS: PROTONIX IV SCH (04:28)
[2019-08-27 07:19] LABS: HEMATOCRIT 25.3 % (42.0-52.0); HEMOGLOBIN 8.5 g/dL (14.0-18.0); MCH 31.3 PG (27-31); MCHC 33.6 g/dL (33-37); MPV 10.1 FL (7.4-10.4); RBC 2.72 XMIL (4.7-6.1); RDW 14.4 % (11.5-14.5); WBC 8.97 X1000 (4.8-10.8)
[2019-08-27] MEDS ORDERED: XYLOCAINE-MPF 2% ONE (08:42)
[2019-08-27] MEDS ORDERED: DIPRIVAN 1% ONE (08:42)
[2019-08-27] MEDS ORDERED: EPINEPHRINE SYRINGE ONE (09:28)
--- NOTE | 2019-08-27 09:48 | ENDOSCOPY OPERATIVE NOTE ---
[facility] ENDOSCOPY OPERATIVE NOTE , PATIENT: Jayant Hinton ADMISSION DATE: MR#: [id number] : 1945 EGD PROCEDURE REPORT PROCEDURE DATE: 08/27/2019 SURGEON: River Salazar MD STATUS: inpatient DIRECT CARE SUPERVISOR: Keo Swenson and Diane Donato PREOPERATIVE DIAGNOSIS: The patient is a 73 yr old male here for an EGD due to GI bleeding; Coffee G round emesis, Anemia. PROCEDURE PERFORMED: EGD w/ control of bleeding MEDICATIONS: Per Anesthesia TOPICAL ANESTHETIC: none CONSENT: The patient understands the risks and benefits of the procedure and understands that these r isks include, but are not limited to: sedation, allergic reaction, infection, perforation and/or bleeding. Alternative means of evaluation and treatment include, among others: physical exam, x-rays, and/or surgical intervention. The patient elects to proceed with this endoscopic procedure. HISORY AND PHYSICAL: 08/27/2019 function. Hand hygiene and appropriate measures for infection prevention was taken. After the risks, benefits and alternatives of the procedure were thoroughly explained, Informed consent was verified, confirmed and timeout was successfully executed by the treatment team. The patient was anesthetized with topical anesthesia and the endoscope was introduced through the mouth and advanced to the second portion of the duodenum. Retroflexion wa s performed in the stomach and revealed no abnormalities. The gastroscope was then slowly withdrawn and removed. ESOPHAGUS: Reflux esophagitis was found in the lower third of the esophagus. Esophagitis was LA Clas s D: Mucosal breaks involving more than 75% of esophageal circumference. STOMACH: Gastritis (inflammation) was found in the gastric antrum and gastric body. DUODENUM: Three ranging between 5-9mm in size non-bleeding ulcers ranging between 3-7mm in size were found in the duodenal bulb and 1st part duodenum. A single bleeding ulcer ranging between 3-5 mm in size with ac tive oozing of blood was found in the duodenal bulb. Submucosal injection of 0.5 ml of epinephrine 1:10,000 was inj ected around the bleeding site with good treatment effect. Cautery was applied to the site. With good treatment effe ct. The duodenal mucosa showed no abnormalities in the 2nd part of the duodenum. SPECIMENS REMOVED: No ADVERSE EVENTS: There were no complications. POSTOPERATIVE DIAGNOSIS: 1. Reflux esophagitis in the lower third of the esophagus 2. Gastritis (inflammation) was found in the gastric antrum and gastric body 3. Three ranging between 5-9mm in size ulcers ranging between 3-7mm in size were found in the duoden al bulb and 1st part duodenum 4. Single ulcer ranging between 3-5 mm in size was found in the duodenal bulb; Submucosal injection of epinephrine 1:10,000 was performed around the bleeding site; cautery was applied to the site; with good treatment effect 5. The duodenal mucosa showed no abnormalities in the 2nd part of the duodenum RECOMMENDATIONS: Start protonix 40 mg twice daily for 3 months; Start Carafate 1g every 6 hours f or 6 weeks; Start Iron C BID, MVi QD for 90 days. RTC 4 weeks. Repeat EGD in 3 months. REPEAT EXAM: River Salazar MD eSigned: River Salazar MD 08/27/2019 10:47 AM cc: PATIENT NAME: Jayant Hinton MR#: [id number]
[2019-08-27] MEDS: TOPROL XL PO SCH (10:47)
[2019-08-27] MEDS: TRILIPIX PO SCH (10:47)
[2019-08-27] MEDS: CRESTOR PO SCH (10:48)
[2019-08-27] MEDS: METAMUCIL POWDER PACKET PO SCH (10:48)
[2019-08-27] MEDS: PRINIVIL PO SCH (10:48)
[2019-08-27] MEDS: ZETIA PO SCH (10:48)
[2019-08-27] MEDS ORDERED: CARAFATE PO SCH (11:00)
[2019-08-27] MEDS ORDERED: CENTRUM SILVER PO SCH (11:00)
[2019-08-27 11:31] VITALS: BP 143/63
[2019-08-27] MEDS ORDERED: ICAR-C PO SCH (21:00)
--- NOTE | 2019-08-28 14:13 | DISCHARGE SUMMARY ---
ADMISSION DATE: 08/24/2019 DISCHARGE DATE: 08/27/2019 DISPOSITION: Home. FOLLOW-UP: 1. Dr. Salazar. 2. Dr. Queta Wheat. INVASIVE PROCEDURES DONE DURING THIS ADMISSION: An EGD was done by Dr. Salazar. Findings include: 1. Reflux esophagitis in the 3rd esophagus. 2. Gastritis found in the gastric atrium and gastric body. 3. 3 ranging ulcers were found in the duodenal bulb. 4. A single ulcer ranging from 3 to 5 mm was found in the duodenal bulb which was bleeding and was cauterized. ADMISSION DIAGNOSIS: 1. GI bleed. 2. Leukocytosis. 3. Abdominal pain. 4. Diabetes. DIAGNOSIS AT THE TIME OF DISCHARGE: 1. Coffee-ground emesis with melenic stool consistent with GI bleed. 2. Bleeding duodenal ulcer status post endoscopic therapy. 3. Reflux esophagitis. 4. Gastritis. 5. Diabetes mellitus. 6. Hypertension. 7. Dyslipidemia. 8. Mild lactic acidosis from dehydration on presentation, resolved. DISCHARGE MEDICATIONS: 1. Lisinopril 20 mg p.o. daily. 2. Metoprolol 100 mg p.o. daily. 3. Zetia 10 mg p.o. daily. 4. Crestor 40 mg p.o. daily. 5. Fenofibrate 135 p.o. daily. 6. Metamucil. 7. Metformin 500 p.o. b.i.d. 8. Pantoprazole 40 mg b.i.d. 9. Carafate 1 g p.o. q. 6. 10. Iron. PRESENTING COMPLAINT: Black stool, coffee-ground emesis. HISTORY OF PRESENTING COMPLAINT: Mr. Hinton is a 73-year-old male with multiple comorbidities including diabetes, hypertension, dyslipidemia, coronary artery disease, recently discharged from the hospital for diverticulitis management, came back with coffee-ground emesis and melenic stool. His hemoglobin and hematocrit on admission was 11.6. Mr. Hinton was subsequently admitted for medical management. HOSPITAL COURSE: Mr. Hinton was admitted to the medical floor. Hemoglobin and hematocrit were trended throughout the hospital course, it did drop to about 8.6 and did remain around 8.3-8.5 throughout the hospital course. He did not need any blood transfusion. Mr. Hinton was evaluated by GI and EGD was done. Please refer to the details of the EGD report in the chart. Recommendations were given to start him on b.i.d. PPI and Carafate and also iron, and Mr. Hinton will follow up with Dr. Salazar on outpatient basis. During the hospital course, Mr. Hinton did not have any more coffee-ground emesis nor any more melenic stool. He was reviewed. He also remained completely asymptomatic after the procedure. He was able to tolerate his clear liquids and he has been advised to continue clear liquids for a day or 2 and then graduate and then advance as tolerated. All the discharge instructions have been discussed with Mr. Hinton. The was at the bedside at the time of the encounter. He has also been advised to follow up with Dr. Salazar. Anti-reflux measures were also discussed with him. Time spent for discharge is 35 minutes. cc: MD River Dillon MD Marlin D. Gill, MD
== END 2019-08-27 16:50 | disposition home or self-care (01) | DRG 378 ==
LOC: ED 08:54 → 3N 14:09
PROVIDERS: ATTEND Internal Medicine
PROC: EN.HEAT (2019-08-27 09:05)